=== PATIENT | female | born 1985 | race African-American/Black ===

== ENCOUNTER 2018-12-04 08:26 | Emergency (ER) | payer MEDICARE, OTHER ==
[2018-12-04] MEDS: PROMETHAZINE/CODEINE 5ML CUP PO (10:20)
[2018-12-04] MEDS: DEXAMETHASONE 10 MG/ML 1 ML INJ IM (10:20)
[2018-12-04] MEDS: BENZONATATE 100 MG CAP PO (10:44)
== END 2018-12-04 11:17 | disposition home or self-care (01) ==
LOC: FTE 08:26
DX: J30.9 Allergic rhinitis, unspecified (principal); J03.90 Acute tonsillitis, unspecified
CPT/HCPCS: 87880; 96372; 99284-25